=== PATIENT | female | born 1970 | race Caucasian/White ===

== ENCOUNTER 2019-05-10 12:04 | Day surgery (SDC) | payer OTHER ==
[2019-05-09 10:12] LABS: BASOPHILS % (AUTO) 0.5 % (0.0-2.0); EOSINOPHILS # (AUTO) 0.1 K/uL (0-0.4); EOSINOPHILS % (AUTO) 1.9 % (0.0-4.0); HEMATOCRIT 39.3 % (36-48); HEMOGLOBIN 13.4 g/dL (12.0-16.0); LYMPHOCYTES # (AUTO) 2.2 K/uL (2.5-16.5); LYMPHOCYTES % (AUTO) 32.5 % (20.5-51.1); MEAN CORPUSCULAR HEMOGLOBIN 34 pg (27-31); MEAN CORPUSCULAR HGB CONC 34 g/dL (33-37); MEAN CORPUSCULAR VOLUME 100.6 fL (80-94); MONOCYTES # (AUTO) 0.4 K/uL (0.8-1.0); MONOCYTES % (AUTO) 6.1 % (1.7-9.3); NEUTROPHILS # (AUTO) 3.9 K/uL (1.8-7.7); PLATELET COUNT (AUTO) 262 K/uL (140-450); RED CELL DISTRIBUTION WIDTH 13.2 % (11.6-13.7); WHITE BLOOD COUNT (AUTO) 6.7 K/uL (4.8-10.8)
[~2019-05-10] VITALS: Ht 152.4 cm; Wt 89.8 kg
[2019-05-10] MEDS ORDERED: SYN.05 PO (12:57)
[2019-05-10 13:06] LABS: ANION GAP 10.9 (8-16); CARBON DIOXIDE 25.8 mmol/L (21-32); CREATININE 0.6 mg/dL (0.6-1.3); POTASSIUM 3.7 mmol/L (3.5-5.1)
[2019-05-10] MEDS ORDERED: fentaNYL 0.05 MG/ML VIAL ONE (16:21)
[2019-05-10] MEDS ORDERED: ONDANSETRON 4 MG/2 ML VIAL ONE (16:22)
[2019-05-10] MEDS ORDERED: DESFLURANE 240 ML BTL INH ONE (16:22)
[2019-05-10] MEDS ORDERED: PROPOFOL 200 MG/20 ML VIAL IV ONE (16:22)
[2019-05-10] MEDS ORDERED: KETOROLAC 30 MG/ML VIAL ONE (16:22)
[2019-05-10] MEDS ORDERED: DEXAMETHASONE 4 MG/ML VIAL ONE (16:22)
== END 2019-05-10 18:30 | disposition home or self-care (01) ==
LOC: MOR 12:04 → MMU 12:10 → MOR 18:30
PROVIDERS: ATTEND Obstetrics & Gynecology
DX: D06.9 Carcinoma in situ of cervix, unspecified (principal); E66.3 Overweight; E03.9 Hypothyroidism, unspecified; M06.9 Rheumatoid arthritis, unspecified
CPT/HCPCS: 36415; 57522; 71045; 80048; 84703; 85025; 93005; J1100; J1885; J2405; J2704; J3010; J7120; Q0092; 88305; 88307